=== PATIENT | male | born 1970 | race Caucasian/White ===

== ENCOUNTER 2016-12-05 18:11 | Emergency (ER) | payer OTHER ==
[~2016-12-05] VITALS: Ht 175.3 cm; Wt 77.3 kg
[2016-12-05] MEDS ORDERED: VIIB40TA PO (18:35)
[2016-12-05] MEDS ORDERED: GABA600T PO (18:35)
[2016-12-05] MEDS ORDERED: IBUP-1022 PO (20:47)
[2016-12-05 20:59] VITALS: BP 148/84
--- NOTE | 2016-12-06 08:43 | REP ---
REASON: Pain after trauma. COMPARISON: None. FINDINGS: The joint spaces are symmetric and relatively well maintained. There is no evidence of acute fracture or destructive osseous lesion. IMPRESSION: Negative. Signed by Clarence Ray DO 12/06/2016 09:21 A
--- NOTE | 2016-12-06 08:44 | REP ---
REASON: Pain after trauma. PRIORS: None. FINDINGS: The compartments are symmetric and relatively well maintained. There is no acute fracture or destructive osseous lesion. Signed by Clarence Ray DO 12/06/2016 09:22 A
== END 2016-12-05 21:01 | disposition home or self-care (01) ==
LOC: M ED 18:11
DX: S96.811A Strain of other specified muscles and tendons at ankle and foot level, right foot, initial encounter (principal); S83.91XA Sprain of unspecified site of right knee, initial encounter; X50.1XXA Overexertion from prolonged static or awkward postures, initial encounter; Y92.410 Unspecified street and highway as the place of occurrence of the external cause; Y93.9 Activity, unspecified; Y99.9 Unspecified external cause status; F43.10 Post-traumatic stress disorder, unspecified; Z87.891 Personal history of nicotine dependence; Z79.899 Other long term (current) drug therapy; Z88.5 Allergy status to narcotic agent